=== PATIENT | male | born 1960 | race Caucasian/White ===

== ENCOUNTER 2021-06-04 10:05 | Emergency (ER) | payer OTHER ==
[~2021-06-04] VITALS: Ht 175.3 cm; Wt 82.0 kg
[2021-06-04 11:20] LABS: CHLORIDE 89 mEq/L (98-107)
[2021-06-04] MEDS ORDERED: SODIUM CHLORIDE 0.9% 1,000 ML IV ONE (12:15)
[2021-06-04] MEDS ORDERED: POTASSIUM CHLORIDE 20MEQ TABLET SR PO ONE (12:15)
[2021-06-04 12:27] LABS: BASOPHILS % 0.8 % (0.0-2.0); EOSINOPHILS % 0.8 % (0.0-5.0); HEMATOCRIT. 45.4 % (42.0-52.0); HEMOGLOBIN. 16.7 g/dL (14.0-18.0); LYMPHOCYTES % 17.3 % (20.0-50.0); MEAN CORPUSCULAR HEMOGLOBIN 36.4 pg (28.0-32.0); MEAN CORPUSCULAR VOLUME 99.2 fL (80.0-94.0); MEAN PLATELET VOLUME 10.4 fl (7.4-10.4); MONOCYTES % 11.8 % (2.0-8.0); NEUTROPHILS % 69.3 % (40.0-76.0); PLATELET 189 x1000/uL (130-400); RED BLOOD CELL COUNT 4.58 mill/uL (4.7-6.1); RED CELL DISTRIBUTION WIDTH 12.3 % (11.6-14.6)
[2021-06-04 12:30] VITALS: BP 158/74
== END 2021-06-04 13:01 | disposition left against medical advice (07) ==
LOC: ER 10:05
DX: R55 Syncope and collapse (principal); E87.6 Hypokalemia; E87.1 Hypo-osmolality and hyponatremia; R07.89 Other chest pain; I10 Essential (primary) hypertension; F10.20 Alcohol dependence, uncomplicated; Y90.9 Presence of alcohol in blood, level not specified; Z71.89 Other specified counseling
CPT/HCPCS: 36415; 71045; 80053; 83880; 84484; 85025; 93005; 99285; J7030